=== PATIENT | female | born 1975 | race Caucasian/White ===

== ENCOUNTER 2023-08-13 06:40 | Day surgery (SDC) | payer OTHER ==
[2023-08-11 12:29] VITALS: BMI 23.5
[2023-08-13] MEDS ORDERED: fentaNYL 50 mcg/mL 1 mL Vial ONE (08:29)
[2023-08-13] MEDS ORDERED: Midazolam HCl 2 mg/2 ml Vial ONE (08:29)
== END 2023-08-13 09:55 | disposition home or self-care (01) ==
LOC: CSHSDC 06:40
PROVIDERS: ATTEND Internal Medicine Gastroenterology
PROC: 0DBP8ZZ Excision of Rectum, Via Natural or Artificial Opening Endoscopic (ICD-10-PCS; principal; 2023-08-13)
DX: K62.1 Rectal polyp (principal); K64.9 Unspecified hemorrhoids; K63.89 Other specified diseases of intestine; R19.5 Other fecal abnormalities; I10 Essential (primary) hypertension; Z88.0 Allergy status to penicillin; Z88.1 Allergy status to other antibiotic agents; Z88.8 Allergy status to other drugs, medicaments and biological substances
CPT/HCPCS: 88305; J2250; J3010